=== PATIENT | male | born 1975 | race Caucasian/White ===

== ENCOUNTER 2020-02-07 09:04 | Emergency (ER) | payer MEDICAID, SELFPAY ==
[2020-02-07 09:16] VITALS: BP 112/63; BP 147/90; PULSE 103; PULSE 99; RESP 22; TEMP 36.6; O2SAT 95; BMI 33.4
--- NOTE | 2020-02-07 09:28 | ED.OVERDOSE ---
HPI - Overdose General Chief Complaint: Overdose Stated Complaint: HEROIN USE,NARCAN GIVEN BY BYSTANDER Time Seen by Provider: 02/07/20 09:25 Source: patient and EMS Mode of arrival: EMS Limitations: no limitations History of Present Illness HPI Narrative: 44 y/o male with history of substance abuse presenting via EMS after he was found in his car unresponsive at a traffic light after using 1 bag of intranasal heroin. He was reportedly found by bystanders and given 4 doses of IN Narcan per [place] [employer]. He admits to drinking and driving last night. He says he has been stressed and not sleeping. He admits to cocaine use at times and regular ETOH use. He denies using heroin and says this was his 1st time. MD complaint: accidental overdose Onset (ago): hour(s) (2) Intent: wanted to go to sleep Context: Accidental Overdose: wanted to get high Treatments Prior to Arrival: narcan Related Data Allergies Allergy/AdvReac Type Severity Reaction Status Date / Time Penicillins [PENICILLINS] Allergy Unknown HIVES/UPSET Verified 02/07/20 09:16 STOMACHE Review of Systems Review of Systems: Constitutional: No Fever, No Chills Cardiovascular: No Chest Pain, No SOB Respiratory: No Cough, No Sputum Gastrointestinal: No Nausea, No Vomiting, No Diarrhea, No abdominal Pain Musculoskeletal: No joint pain, No Myalgias Skin: No Skin Lesions, No rash Neuro: No Weakness, No Numbness, No Dizziness, + Headache Psych: + Anxiety/Panic, + Depression PMFSH Past Medical History Attestation statement: The following information was validated with the patient. Social History Social History Alcohol intake: current Alcohol intake frequency: a few times a week Smoking Status: Current every day smoker Smoked in Last 30 Days: Yes Use of substances other than those prescribed or required for medical reasons: Yes Substance Use Type: Crack/Cocaine and Heroin Substance Use Frequency: Occasionally Last Used Substance: Just Prior to Admission Advance Directives: No Advance Directives Information Provided: Yes Physical Exam Vital Signs: Vital Signs: Last Vital Signs Temp 97.8 F 02/07/20 11:44 Pulse 103 H 02/07/20 11:44 Resp 18 02/07/20 11:44 BP 134/84 02/07/20 11:44 Pulse Ox 97 02/07/20 11:44 Body Mass Index 33.4 Appearance: Alert. Oriented X3. No acute distress. Eyes: Pupils equal, round and reactive to light. ENT: Pharynx normal. Neck: Normal inspection. Neck supple. CVS: Normal heart rate and rhythm. Pulses normal. Respiratory: No respiratory distress. Breath sounds normal. Abdomen: Soft and nontender. +BS x4 Skin: Skin warm and dry. Normal skin color. Normal skin turgor. No rashes. Extremities: No lower extremity edema. Neuro: Oriented X 3. Grosslt normal, speech slightly slurred but conversant. Course Course Course Narrative: 44 y/o male presenting s/p unintentional heroin OD s/p Narcan x4 in the field by bystanders. AAO x3 no respiratory depression on arrival. Denies SI or intent. Will monitor closely in the ER for 2-3 hours to make sure he does not require additional Narcan. Reevaluation(s) Reevaluation #1: Respiratory status and mental status remains AAO x3. Ambulating to the bathroom with steady gait. He been observed in the ER for over 3 hours and remains AAO, conversant. Declining detox or conversation with substance abuse counselor. He is stable for discharge. Discharge Plan Discharge Clinical Impression: Drug overdose Qualifiers: Encounter type: initial encounter Injury intent: accidental or unintentional Qualified Code(s): T50.901A - Poisoning by unspecified drugs, medicaments and biological substances, accidental (unintentional), initial encounter Patient Disposition: Home, Self-Care Instructions: Adult Overdose (ED) Additional Instructions: DO NOT USE HEROIN - IT MARVEL KILL YOU! Do not drink alcohol and operate machinery, including a motor vehicle. Follow up with your doctor this week.
--- NOTE | 2020-02-07 10:05 | PC.NURSE ---
Pt taken to bathroom to change with security.Belongings taken to decon. Pt resting in bed comfortably . He remains awake and alert but drowsy at this time.
--- NOTE | 2020-02-07 11:40 | PC.NURSE ---
Pt remains easily arrousable and cooperative at this time.
[2020-02-07 11:44] VITALS: BP 134/84; PULSE 103; RESP 18; TEMP 36.6; O2SAT 97
== END 2020-02-07 12:24 | disposition home or self-care (01) ==
PROVIDERS: Emergency Provider Emergency Medicine
DX: T40.1X1A Poisoning by heroin, accidental (unintentional), initial encounter (principal); R40.4 Transient alteration of awareness; Y92.810 Car as the place of occurrence of the external cause
CPT/HCPCS: 99284; 99285

== ENCOUNTER 2020-09-26 10:24 | Emergency (ER) | payer MEDICAID, SELFPAY ==
--- NOTE | ~2020-09-26 | US_ITS ---
EXAMINATION: US VENOUS ULTRASOUND WITH DOPPLER LOWER EXTREMITY, LEFT CLINICAL INFORMATION: Pain and swelling COMPARISON: None TECHNIQUE: Ultrasound of the deep veins is performed from the hip to the calf with compression sonography and color and pulse Doppler assessment. Spectral analysis with color-flow imaging is performed. FINDINGS: There is normal venous compression and respiratory variation and augmented flow. The visualized common femoral vein, superficial femoral vein, profunda femoral vein, popliteal vein, and the trifurcation region shows no evidence of deep venous thrombosis. There is no significant popliteal fossa cyst. There is a shotty lymph node in the groin. If the patient's symptoms persist, followup ultrasound in 5 days 7 days might be of value to exclude proximal propagation from a non-visualized calf vein. US/US venous duplex LE IMPRESSION: No DVT demonstrated in the left lower extremity.
--- NOTE | ~2020-09-26 | XR_ITS ---
EXAMINATION: XR ANKLE, LEFT CLINICAL INFORMATION: Left ankle pain COMPARISON: None TECHNIQUE: AP, lateral, and mortise views of the left ankle. FINDINGS: There is moderate lateral malleolar soft tissue swelling. The ankle mortise and subtalar joints are normal. No visible acute fracture, dislocation or subluxation seen. There is a small calcaneal heel and retrocalcaneal enthesophyte. XR/XR ankle LT 2V IMPRESSION: No acute fracture or dislocation. Small retrocalcaneal and calcaneal heel enthesophytes.
[2020-09-26 10:37] VITALS: BP 140/82; PULSE 80; RESP 18; TEMP 36.5; O2SAT 97; BMI 31.9
--- NOTE | 2020-09-26 10:45 | ED_ITS ---
HPI - General Adult General Chief complaint: Extremity Injury, Lower Stated complaint: lt ankle pain Time Seen by Provider: 09/26/20 10:44 Source: patient Mode of arrival: wheelchair History of Present Illness HPI narrative: 45 y.o. M presenting to the ED with LLE pain and swelling. Pt. states he woke up with his left ankle being swollen. He denies injury or fall. He states he previously injured his ankle many years ago and took off his cast and does not think he let it heal correctly. He denies injury. He is unsure if he injured it while sleeping. He endorses pain behind his left leg as well. No hx of DVT. NO hx of gout. He otherwise denies loss of sensation, fevers, CP, SOB, abd pain, vomiting. Related Data Allergies Allergy/AdvReac Type Severity Reaction Status Date / Time Penicillins [PENICILLINS] Allergy Unknown HIVES/UPSET Verified 02/07/20 09:16 STOMACHE Review of Systems Constitutional: Constitutional: Denies fever(s) and Denies frequent falls Eyes: Eyes: Reports no additional eye complaints ENT: Reports system reviewed and no additional complaints, except as documented Cardiovascular: Cardiovascular: Denies chest pain and Denies dyspnea Respiratory: Respiratory: Denies dyspnea Gastrointestinal: Gastrointestinal: Denies abdominal pain, Denies diarrhea and Denies vomiting Musculoskeletal: Comments: left ankle swelling Neurologic: Denies frequent falls Psychiatric: Psychiatric: Reports no additional psychiatric complaints Hematologic/Lymphatic: Hematologic/Lymphatic: Denies easy bleeding PMFSH Past Medical History Medical History (Updated 09/26/20 @ 12:28 by SOCO Tijerina) High blood pressure Social History Social History (Updated 09/26/20 @ 12:44 by SOCO Tijerina) Alcohol intake: current Alcohol intake frequency: a few times a week Substance Use Type: Crack/Cocaine and Heroin Substance Use Type Other:: pt. has a hx of heroin and crack/coccaine which he denies use Advance Directives: No Advance Directives Information Provided: No Physical Exam Vital Signs: Vital Signs: Last Vital Signs Temp 97.7 F 09/26/20 10:37 Pulse 80 09/26/20 10:37 Resp 18 09/26/20 12:27 BP 140/82 H 09/26/20 10:37 Pulse Ox 97 09/26/20 10:37 Body Mass Index 31.9 Const: Other: sitting upright in wheelchair talking on phone General: cooperative Orientation/consciousness: patient oriented x3 HENMT: Head: Yes atraumatic Eyes: Pupils: Equal, round and reactive pupils present Neck: Neck: Yes supple Resp: Effort & Inspection: normal respiratory effort and able to speak in complete sentences Cardio: Rate: regular rate GI: Inspection: No distended Back/Spine/Pelvis: Other: normal ROM Skin: Rashes: no rashes Neuro: General: patient oriented x3 Cranial nerves: Yes Equal, round and reactive pupils present Extrem: Other: LLE- + pedal pulse, full ROM of digits, I am able to passively dorsiflex/plantarflex, swelling noted to lateral malleolus, no erythema or warmth, no open sores or lesions, achilles intact, mild tenderness to posterior lower extremity, no achilles laxity, compartments soft, limbs symmetrical in size with the exception of swelling around the malleolus, neurovascularly intact Psych: Attitude: cooperative Course Reevaluation(s) Reevaluation #1: Pt. remains comfortable sitting in the wheelchair. US is negative for DVT. Xray negative for fx. Will give ortho follow up should his sym ptoms continue. Return precautions given, weight bearing as tolerated. ALONDRA. Medical Decision Making MDM Narrative Medical decision making narrative: 45 y.o. M presenting to the ED with ankle pain and swelling since last night VS stable, not toxic appearing, hemodynamically stable WIll plan for plain film to r/o underlying fx. No evidence of achilles rupture. No evidence of gout or septic joint- no erythema or warmth, I am able to passively range the joint. No open wounds. Given posterior lower calf tenderness will send for US to r/o DVT. No infectious symptoms. No evidence of tendon rupture. Will plan for crutches and air splint for weight bearing as tolerated. NSAIDs for pain. Discharge Plan Discharge Clinical Impression: Ankle pain Patient Disposition: Home, Self-Care Instructions: R.I.C.E. Treatment (ED) Additional Instructions: Please use the crutches for weight bearing as tolerated, wear air splint for comfort. If your symptoms do not improve we recommend you call the orthopedic office. Please return if your symptoms worsen, increased pain, swelling, difficulty walking, weakness, numbness, tingling, loss of balance, falling, redness, warmth or rashes, or any other concerning symptoms. You may take tylenol or ibuprofen for pain if needed. Referrals: Jarod Coello MD [Physician] - 1 week Interventions: ED Discharge Assessment Last Done: 09/26/20 12:33 Discharge Date/Time: 09/26/20 12:33
[2020-09-26] MEDS: Ibuprofen 600 MG TABLET PO (11:15)
[2020-09-26] MEDS: Acetaminophen 325 MG TABLET 650 MG PO (11:16)
[2020-09-26 12:26] VITALS: RESP 18
[2020-09-26 12:27] VITALS: RESP 18
== END 2020-09-26 12:33 | disposition home or self-care (01) ==
PROVIDERS: Emergency Provider Emergency Medicine
DX: M25.572 Pain in left ankle and joints of left foot (principal); R60.0 Localized edema; F11.90 Opioid use, unspecified, uncomplicated; F14.90 Cocaine use, unspecified, uncomplicated
CPT/HCPCS: 73600; 93971; 99284

== ENCOUNTER 2023-02-19 16:08 | Emergency (ER) | payer MEDICAID, SELFPAY ==
--- NOTE | ~2023-02-19 | XR_ITS ---
EXAMINATION: XR ANKLE, LEFT CLINICAL INFORMATION: Status post fall. Swelling. COMPARISON: None available. TECHNIQUE: AP, lateral, and mortise views of the left ankle. FINDINGS: There is bimalleolar soft tissue swelling. No acute fracture or dislocation seen. There is small bone fragments along the tip of medial and lateral malleoli likely old fracture fragments. Ankle mortise and subtalar joints are normal. Small calcaneal enthesophyte is seen. The soft tissues are normal. XR/XR ankle LT min 3V IMPRESSION: 1. Bimalleolar soft tissue swelling. No visible acute fracture or dislocation seen. 2. Small calcaneal heel enthesophyte
[2023-02-19 16:55] VITALS: BP 132/57; PULSE 75; RESP 18; TEMP 36.4; O2SAT 97; BMI 31.9
--- NOTE | 2023-02-19 18:16 | ED.GENADULT ---
HPI - General Adult General Chief complaint: Extremity Injury, Lower Stated complaint: fell left ankle inj Time Seen by Provider: 02/19/23 18:16 Source: patient and communications marketing intern Mode of arrival: wheelchair Limitations: language barrier History of Present Illness HPI narrative: Patient is a 47 year old assigned male at with no reported medical history presenting to the emergency department today with left ankle pain. Patient states that he was in the [facility] parking lot when he tripped over a metal addy and now having left ankle pain. Patient denies any head strike, loss of consciousness, dizziness, lightheadedness, abdominal pain, nausea, vomiting, fever, chills, blurry vision, double vision, loss of vision, chest pain, difficulty breathing, shortness of breath, back pain, night sweats, pain with urination, increased urinary frequency, increased urinary urgency, blood in his urine or stool, syncope or a near syncopal episode, bowel incontinence, bladder incontinence, bowel retention, bladder retention, or any other complaints at this time. Onset (ago): minute(s) Location: left and lower extremity Radiation: non-radiation Severity: mild Severity scale (1-10): 3 Quality: aching and dull Pain Consistency: constant Relieving factors: none Exacerbating factors: none Associated symptoms: denies other symptoms Treatments prior to arrival: none Related Data Allergies Allergy/AdvReac Type Severity Reaction Status Date / Time Penicillins [PENICILLINS] Allergy Unknown HIVES/UPSET Verified 02/07/20 09:16 STOMACHE Review of Systems Constitutional: Constitutional: Reports no additional constitutional complaints, Denies chills, Denies fever(s) and Denies night sweats Eyes: Eyes: Reports no additional eye complaints, Denies blurry vision, Denies change in vision, Denies diplopia, Denies eye discharge, Denies loss of vision and Denies eye pain ENT: Denies dizziness Cardiovascular: Cardiovascular: Reports no additional cardiovascular complaints, Denies chest pain, Denies lightheadedness, Denies Loss of Consciousness and Denies dyspnea Respiratory: Respiratory: Reports no additional respiratory complaints and Denies dyspnea Gastrointestinal: Gastrointestinal: Reports no additional gastrointestinal complaints, Denies abdominal pain, Denies melena, Denies hematochezia, Denies change in bowel habits and Denies change in stool character Genitourinary: Genitourinary: Reports no additional male genitourinary complaints, Denies hematuria, Denies oliguria, Denies difficulty urinating, Denies dysuria, Denies urinary frequency, Denies urinary hesitancy, Denies urinary incontinence and Denies urinary urgency Musculoskeletal: Musculoskeletal: Reports no additional musculoskeletal complaints, Denies numbness and Denies tingling Comments: left ankle pain Neurologic: Denies dizziness, Denies loss of vision, Denies numbness and Denies tingling Psychiatric: Psychiatric: Reports no additional psychiatric complaints Endocrine: Endocrine: Reports no additional endocrine complaints Hematologic/Lymphatic: Hematologic/Lymphatic: Reports no additional hematologic/lymphatic complaints Allergic/Immunologic: Allergic/Immunologic: Reports no additional allergic/immunologic complaints [facility] Past Medical History Attestation statement: The following information was validated with the patient. Source: old records reviewed and nursing notes reviewed Onset Date is defined in the Problem List Problems that require an onset date and time if occurred within 24 hrs of arrival to the ED Aortic Dissection and Rupture; Neurologic impairment; Cardiopulmonary Arrest; Endotracheal Intubation; Insertion or Replacement of Mechanical Circulatory Assist Device Medical History High blood pressure Social History Social History Alcohol intake: current Alcohol intake frequency: a few times a week Substance Use Type: Crack/Cocaine and Heroin Advance Directives: No Advance Directives Information Provided: No Physical Exam ED Vital Signs: Vital Signs - 24 hr 02/19/23 16:55 Temperature 97.6 F Pulse Rate 75 Respiratory Rate 18 Blood Pressure 132/57 L Pulse Oximetry 97 Oxygen Delivery Method Room Air BMI result Body Mass Index 31.9 Const General: cooperative, no acute distress, alert and awake Nutritional Appearance: well nourished Orientation/consciousness: patient oriented x3 Limitations: no limitations HENMT Head: Yes normal to inspection and Yes atraumatic Ears: hearing grossly normal bilaterally and external ears normal General nose exam: Normal external nose present, no nasal discharge noted and no epistaxis Face and sinus: Yes normal facial exam, No abrasion and No laceration Mouth: Normal oral and palatal mucosa present, no drooling and no muffled voice Eyes General: appearance normal, both eyes and all related structures Periorbital: periorbital findings normal Eyelids: Yes eyelids normal Conjunctivae: conjunctivae normal Pupils: Equal, round and reactive pupils present EOM: EOMs intact bilaterally Neck Neck: Yes normal visual inspection, Yes full ROM and Yes no lymphadenopathy Chest Chest palpation & inspection: normal inspection of the chest Resp Effort & Inspection: normal respiratory effort and able to speak in complete sentences GI Inspection: Yes normal to inspection Neuro General: patient oriented x3 and moves all extremities Cranial nerves: Yes Equal, round and reactive pupils present Cognition (Neuro): normal cognition Motor exam (neuro): 5/5 motor strength present throughout Sensory Exam: Normal double simultaneous stimulation for sensation Coordination: [id number] test normal Extrem General: Yes normal to inspection, Yes full ROM and Yes capillary refill normal Psych Appearance: grossly normal Mental Status: mental status grossly normal Affect: normal affect Attitude: cooperative Thought process: Normal thought process present Thought content: Normal thought content present Insight: Good insight present (Psych) Procedures Orthopedic Splinting/Casting Injury #1: Side: left Upper Extremity Immobilizer: Hernán wrap Lower Extremity Injury Location: ankle Medical Decision Making Medical Decision Making MDM Narrative: Patient is a 47 year old assigned male at with no reported medical history presenting to the emergency department today with left ankle pain. Patient's physical exam was unremarkable. Patient's left ankle x-ray showed no acute process. I explained my physical exam findings as well as all test results to the patient. I answered all questions asked by the patient. HERNÁN Wrap applied to the left ankle without incident. Patient's PMS was intact prior to and after HERNÁN placement. I stressed the importance of the patient taking his medication as prescribed. I stressed the importance of the patient following up with his primary care provider. I stressed the importance of the patient returning to the emergency department immediately if his symptoms were to worsen or if he were to develop any dizziness, shortness of breath, difficulty breathing, chest pain, blurry vision, loss of vision, nausea, vomiting, abdominal pain, fever, chills, back pain, or any other complaints. Patient verbalized agreement and understanding with this treatment plan and discharge. Differential Diagnosis Differential Diagnoses: The differential diagnosis associated with the presentation includes Ankle sprain Ankle strain Ankle fracture Admission/Observation Consideration of admission/observation: Escalation of care including admission/observation considered Patient would have been admitted to the hospital had his work up had any findings where hospital admission was appropriate and his clinical presentation warranted hospital admission. Independent Interpretation I performed an independent interpretation of an: Plain X-Ray Interpretation: My interpretation is in agreement with the radiologist's impression of this imaging study. EXAMINATION: XR ANKLE, LEFT CLINICAL INFORMATION: Status post fall. Swelling. COMPARISON: None available. TECHNIQUE: AP, lateral, and mortise views of the left ankle. FINDINGS: There is bimalleolar soft tissue swelling. No acute fracture or dislocation seen. There is small bone fragments along the tip of medial and lateral malleoli likely old fracture fragments. Ankle mortise and subtalar joints are normal. Small calcaneal enthesophyte is seen. The soft tissues are normal. XR/XR ankle LT min 3V IMPRESSION: 1. Bimalleolar soft tissue swelling. No visible acute fracture or dislocation seen. 2. Small calcaneal heel enthesophyte Dictated By: Curtis Ames MD Signed By: Electronically signed by Curtis Ames MD 02/19/23 3943 Radiology Impression Discussion of test interpretation with radiology: I have reviewed the radiologist's reading. Discharge Plan Discharge Clinical Impression: Ankle sprain and strain Patient Disposition: Home, Self-Care Instructions: Ankle Sprain (DC) Additional Instructions: Follow up with your primary care provider. Return to the emergency department immediately if your symptoms worsen or if you develop any dizziness, shortness of breath, difficulty breathing, chest pain, blurry vision, loss of vision, nausea, vomiting, abdominal pain, fever, chills, back pain, or any other complaints. Alma un seguimiento con hill proveedor de atenci?n primaria. Regrese al departamento de emergencias inmediatamente si catracho s?ntomas empeoran o si presenta mareos, dificultad para respirar, dificultad para respirar, dolor en el pecho, visi?n borrosa, p?rdida de la visi?n, n?useas, v?mitos, dolor abdominal, fiebre, escalofr?os, dolor de espalda o cualquier otras quejas. Referrals: [facility] [place] Family Medicine [Provider Group] (Call to establish and follow up with a primary care provider. If you already have a primary care provider, please follow up with them. Llame para establecer y realizar un seguimiento con un proveedor de atenci?n primaria. Si ya tiene un proveedor de atenci?n primaria, alma un seguimiento con ?l.) [facility] [place] Primary Care, [facility] [Provider Group] (Call to establish and follow up with a primary care provider. If you already have a primary care provider, please follow up with them. Llame para establecer y realizar un seguimiento con un proveedor de atenci?n primaria. Si ya tiene un proveedor de atenci?n primaria, alma un seguimiento con ?l.) [facility] [place] Primary Care,Cheryl [Provider Group] (Call to establish and follow up with a primary care provider. If you already have a primary care provider, please follow up with them. Llame para establecer y realizar un seguimiento con un proveedor de atenci?n primaria. Si ya tiene un proveedor de atenci?n primaria, alma un seguimiento con ?l.) Interventions: ED Discharge Assessment Last Done: 02/19/23 18:34 Discharge Date/Time: 02/19/23 18:35 Print Language: Setswana
== END 2023-02-19 18:35 | disposition home or self-care (01) ==
LOC: HO.ED 18:30
PROVIDERS: Emergency Provider Emergency Medicine
DX: S93.402A Sprain of unspecified ligament of left ankle, initial encounter (principal); W01.0XXA Fall on same level from slipping, tripping and stumbling without subsequent striking against object, initial encounter; Y93.9 Activity, unspecified; Y92.9 Unspecified place or not applicable; Y99.9 Unspecified external cause status
CPT/HCPCS: 29515; 73610; 99282; 99283

== ENCOUNTER 2023-03-23 11:23 | Emergency (ER) | payer OTHER, SELFPAY ==
--- NOTE | ~2023-03-23 | XR_ITS ---
EXAMINATION: XR KNEE, LEFT CLINICAL INFORMATION: Fall COMPARISON: None available. TECHNIQUE: Four views of the left knee. FINDINGS: No fracture or joint effusion. Alignment is anatomic. Joint spaces are maintained. Small osteophytes at the patellofemoral joint. No abnormal soft tissue calcification. XR/XR knee LT 3V IMPRESSION: No fracture or dislocation.
--- NOTE | ~2023-03-23 | XR_ITS ---
EXAMINATION: XR LUMBOSACRAL SPINE CLINICAL INFORMATION: Left lower back pain COMPARISON: None available. TECHNIQUE: Three views of the lumbosacral spine. FINDINGS: The visualized lumbar vertebrae are intact with normal alignment. There is sacralization of L5. Intervertebral disc spaces are normal. Sacrum and coccyx are intact with normal alignment. XR/XR lumbar spine 2-3V IMPRESSION: 1. L5 sacralization. 2. No fracture or dislocation of lumbar spine is seen.
[2023-03-23 11:37] VITALS: BP 152/86; PULSE 85; RESP 18; TEMP 36.4; O2SAT 95; BMI 34.2
--- NOTE | 2023-03-23 11:37 | ED_ITS ---
HPI - General Adult General Chief complaint: Back Pain/Injury Stated complaint: lower back and ankle pain Time Seen by Provider: 03/23/23 12:07 Source: patient and robotic welding operator Mode of arrival: ambulatory Limitations: language barrier History of Present Illness HPI narrative: Patient is a 47-year-old Chilean-speaking male presenting to the emergency department with complaint of left knee pain and left lower back pain for the past week. He reports that he had a fall a month ago, was evaluated here for ankle pain and has been using a splint but recently developed the knee and back pain. States that at the time of the fall, he fell onto his left side. Has been taking Tylenol and ibuprofen with little relief. Denies any saddle anesthesia or bowel or bladder incontinence, denies IV drug use, denies fevers. Denies any weakness, numbness, tingling to left lower extremity. Reports the pain to his left knee is on the lateral aspect. MD complaint: Left knee and lower back pain Onset (ago): week(s) Location: left and lower extremity Severity: severe Quality: aching Pain Consistency: constant Relieving factors: rest Exacerbating factors: movement Associated symptoms: denies other symptoms Treatments prior to arrival: NSAID and other Related Data Previous Rx's Medication Instructions Recorded diclofenac sodium 1 % topical gel 2 g topical QID #100 grams 03/23/23 prednisone 20 mg tablet 40 mg (2 x 20 mg) PO DAILY #10 tabs 03/23/23 Allergies Allergy/AdvReac Type Severity Reaction Status Date / Time Penicillins [PENICILLINS] Allergy Unknown HIVES/UPSET Verified 03/23/23 11:40 STOMACHE Review of Systems Review of Systems: As per HPI. Yes all other systems are reviewed and are negative Constitutional: Constitutional: Reports as per HPI [facility] Past Medical History Medical History High blood pressure Social History Social History Alcohol intake: current Alcohol intake frequency: a few times a week Substance Use Type: Crack/Cocaine and Heroin Advance Directives: No Physical Exam ED Vital Signs: Vital Signs - 24 hr 03/23/23 11:37 Temperature 97.6 F Pulse Rate 85 Respiratory Rate 18 Blood Pressure 152/86 H Pulse Oximetry 95 Oxygen Delivery Method Room Air BMI result Body Mass Index 34.2 Vital signs have been reviewed and appear to be correct. Blood pressure elevated. Heart rate normal. Respiratory rate normal. Temperature normal. Oxygen saturation normal. Const General: cooperative, healthy appearing and no acute distress Orientation/consciousness: oriented to person, oriented to place, oriented to time and patient oriented x3 Limitations: no limitations [facility] Head: Yes normocephalic and Yes atraumatic Ears: external ears normal General nose exam: Normal external nose present Face and sinus: Yes face symmetric Mouth: oropharynx normal and moist mucous membranes Throat: Yes uvula midline Eyes Pupils: Equal, round and reactive pupils present Neck Neck: Yes normal visual inspection and Yes supple Resp Effort & Inspection: normal respiratory effort and able to speak in complete sentences Auscultation: clear to auscultation bilaterally Cardio Rate: regular rate Rhythm: regular rhythm Heart sounds: S1 normal heart sound present and S2 normal heart sound present GI Palpation (GI): Soft to palpation and nontender Auscultation: normoactive bowel sounds General: Yes no CVA tenderness Back/Spine/Pelvis Back: no CVA tenderness Thoracic/Lumbar Spine: thoracic and lumbar spine normal to inspection, thoraco- lumbar ROM normal, paraspinal muscle tenderness on the left in the mid lumbar and in the lower lumbar, No thoracic spinal tenderness, No lumbar spinal tenderness and straight leg raise positive left Pelvis: no pain with anterior-posterior compression and no pain with lateral compression Skin General skin exam: elasticity normal and turgor normal Neuro General: oriented to person, oriented to place, oriented to time, patient oriented x3, gait normal, tone normal, moves all extremities, Normal light touch and pain sensation, no focal motor deficits, CN's II-XI intact bilaterally and deep tendon reflexes 2+ bilaterally Cranial nerves: Yes Equal, round and reactive pupils present Cognition (Neuro): normal cognition Motor exam (neuro): 5/5 motor strength present throughout, Normal motor muscle tone present throughout and Motor abnormalities not present Extrem General: Yes full ROM, Yes normal exam except as noted, Yes no pedal edema and Yes no calf tenderness Left lower extremity: knee Details: tenderness Location: of the lateral joint line, abnormal ROM Details: pain with active ROM Details: with flexion and knee ligament exam normal; no swelling, no ecchymosis, no crepitus, no deformity and no unusual warmth and foot Details: normal capillary refill and vascular exam Details: dorsalis pedis pulse present and posterior tibial pulse present Psych Mental Status: mental status grossly normal Affect: normal affect Thought process: Normal thought process present Course Course Course Narrative: RME:?47 yo male here for eval of low back pain. Was seen here 1 mo ago for left ankle sprain after tripping in [employer] parking lot. Pain is now radiating up left leg and into left lower back for the past week. Taking tylenol at home without relief, last dose yesterday. able to ambulate w/ discomfort to left ankle. Denie s new injury/ fall. denies numbness/weakness/tingling, dysuria, hematuria. No saddle anesthesia. No history of IVDU. xrs ordered Full HPI, ROS and PE to be performed by the primary ED provider. Medical Decision Making Medical Decision Making [facility] Narrative: Patient is a 47-year-old Chilean-speaking male presenting to the emergency department with complaint of left knee pain and left lower back pain for the past week. On exam patient is awake, A+Ox3, BP elevated, VS otherwise WNL, afebrile, normal neurological exam without focal deficits, physical exam findings as above. Given reported symptoms and physical exam findings, initial differential includes lumbar strain, lumbar radiculopathy, degenerative disc disease, disc herniation, spinal stenosis, spondylosis, vertebral fracture, left knee strain vs contusion vs fracture. Do not suspect ligamentous injury. Do not suspect malignancy/mass, SEA, cauda equina/cord compression. X-ray lumbar spine and left knee notable for no acute fractures, L5 sacralization. My interpretation is in agreement with the radiologist's interpretation. Results discussed with patient and all questions answered. Advised patient to continue alternating Tylenol ibuprofen, will prescribe short course of prednisone for lumbar radiculopathy. Will also prescribe diclofenac gel for knee and ankle pain. Patient provided with new Hernán wrap in the emergency department today. Return precautions discussed. Instructed patient to follow-up with primary care provider. Patient verbalized understanding of and agreement with plan. Discharge Plan Discharge Clinical Impression: Lumbar radiculopathy, Knee pain, left Patient Disposition: Home, Self-Care Instructions: Lumbar Radiculopathy (ED), Knee Pain (ED), R.I.C.E. Treatment (ED) Additional Instructions: You were evaluated in the emergency department today for back pain. Your evaluation did not show signs of medical conditions requiring emergent intervention at this time. We recommended that you use ibuprofen or Tylenol per package directions every 6 hours as needed for pain. If necessary, you can alternate these medications so that you take one medication every 3 hours. For instance, at noon take ibuprofen, then at 3:00 p.m. take Tylenol, then at 6:00 p.m. take ibuprofen. You have been prescribed a short course of steroids to decrease inflammation. You have also been prescribed diclofenac gel which you can apply topically to your knee and ankle for pain. Please schedule an appointment for follow-up with your primary care physician this week for further evaluation of your symptoms. Return to the emergency department if you experience worsening back pain, difficulty walking, fevers, numbness, tingling, incontinence, groin numbness or tingling, or any other concerning symptoms. Prescriptions: New prednisone 20 mg tablet 40 mg PO DAILY Qty: 10 0RF diclofenac sodium 1 % gel 2 g topical QID Qty: 100 0RF Rx Instructions: apply to left knee and ankle Referrals: [facility] [Provider Group]
[2023-03-23 15:50] VITALS: BP 156/97; PULSE 79; RESP 16; TEMP 36.8; O2SAT 98
== END 2023-03-23 15:50 | disposition home or self-care (01) ==
PROVIDERS: Emergency Provider Student in an Organized Health Care Education/Training Program
DX: M54.16 Radiculopathy, lumbar region (principal); M54.50 Low back pain, unspecified; M25.562 Pain in left knee
CPT/HCPCS: 72100; 73562; 99283

== ENCOUNTER 2023-04-20 12:12 | Outpatient (REF) | payer OTHER, SELFPAY ==
--- NOTE | ~2023-04-20 | XR_ITS ---
EXAMINATION: XR KNEE AP STANDING CLINICAL INFORMATION: Pain in left knee. COMPARISON: 03/23/2023 radiographs. TECHNIQUE: AP bilateral standing view of the knees was obtained. [place] view of the left knee. FINDINGS: Small posterior patellar osteophytes. Mild narrowing of the lateral compartments of the bilateral knees with small marginal osteophytes. XR/XR knee standing BI IMPRESSION: Mild degenerative changes in the bilateral knees.
--- NOTE | ~2023-04-20 | XR_ITS ---
EXAMINATION: XR KNEE AP STANDING CLINICAL INFORMATION: Pain in left knee. COMPARISON: 03/23/2023 radiographs. TECHNIQUE: AP bilateral standing view of the knees was obtained. [place] view of the left knee. FINDINGS: Small posterior patellar osteophytes. Mild narrowing of the lateral compartments of the bilateral knees with small marginal osteophytes. XR/XR knee LT 1V IMPRESSION: Mild degenerative changes in the bilateral knees.
== END 2023-04-20 12:13 | disposition home or self-care (01) ==
LOC: HO.HOSX 12:12
PROVIDERS: Visit Provider Physician Assistant
DX: M17.12 Unilateral primary osteoarthritis, left knee (principal); M25.561 Pain in right knee; Z91.81 History of falling
CPT/HCPCS: 20610; 73560; 73565; 99202; J1040

== ENCOUNTER 2023-04-20 13:42 | Outpatient (AMB) | payer OTHER, SELFPAY ==
[2023-04-20 13:49] VITALS: BMI 34.2
--- NOTE | 2023-04-20 13:49 | A.OFFVIS_ITS ---
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 Patient reports he had a fall approx begining of February in the parking lot of [employer], landing on his left side. Seen in ED on 03/23/23 where xrays were done and referred to orthopedics. Currently states he is limited ROM, swelling and pain. Allergies Penicillins [PENICILLINS] Allergy (Unknown, Verified 04/20/23 13:57) HIVES/UPSET STOMACHE Medication List - Last Reconciled 04/20/23 by SOCO Estrella-Micki diclofenac sodium 1% 2 grams topical QID HPI video software engineer-left knee pain HPI Details 47-year-old male who presents to the off ice today for evaluation of left knee pain s/p fall on his left side in the parking lot of [employer], around the beginning of February. He was seen at ED on 03/23/23 where x-rays were performed and he was referred to our office. He currently states he has limited ROM, swelling, and pain in his knee. He also c/o his knee giving out with ambulation and he cannot bend his knee. He has a history of prediabetes. [facility] Medical History High blood pressure Social History (Updated 04/20/23 @ 13:58 by Shagufta Matthews [facility]) Alcohol intake: current Alcohol intake frequency: a few times a week Substance Use Type: Crack/Cocaine and Heroin Current occupational status: disabled Current occupation: rt hand Review of Systems Const All systems reviewed & are unremarkable except as noted in HPI and below Physical Exam Vital Signs: BMI result Body Mass Index 34.2 Const General: cooperative, healthy appearing, comfortable, no acute distress, well developed and alert Orientation/consciousness: patient oriented x3 HEENT Head: Yes normal to inspection, Yes normocephalic and Yes atraumatic Eyes General: appearance normal, both eyes and all related structures Resp Effort & Inspection: normal respiratory effort and able to speak in complete sentences Cardio Rate: regular rate Peripheral pulses: Peripheral pulses 2+ throughout GI Palpation (GI): Soft to palpation Skin Lesions: no lesions Rashes: no rashes Neuro General: patient oriented x3 Extrem Other: Left knee: Skin intact, no erythema. Moderate sized joint effusion present. Tenderness along the medial and lateral joint line. Full ROM with crepitus. Negative Romi?s. No ligamentous laxity. NVI. Office Procedures Joint Injection/Drain Joint Injection/Drain Details: 45 cc joint fluid Primary Site: right knee Prep: site was prepped using aseptic technique, ethochloride spray was applied and injection warnings given Injected: 80 mg of, DepoMedrol, with 8 mL of, 1% plain lidocaine and in the joint Approach Used: anterolateral Procedure: The patient tolerated the procedure well and there was some relief with the local anesthesia Coding 24290 - Glenohumeral/Tronchanteric Bursa/Intraarticular Procedure code (CPT) selection complete Results Reviewed Results Reviewed: Xrays were obtained in the office today and personally reviewed by me of the left knee show well preserved joint space Assessment & Plan Assessment & Plan (1) Osteoarthritis of left knee: Code(s): M17.12 - Unilateral primary osteoarthritis, left knee Qualifiers: Osteoarthritis type: primary Qualified Code(s): M17.12 - Unilateral primary osteoarthritis, left knee Plan Left knee was aspirated in the office today 45cc joint fluid . We discussed options today which include steroid injection. They did consent to move forward with the left knee asp and injection, which was tolerated well. I recommended rest, ice and elevation and OTC anti-inflammatories PRN for discomfort. An MRI of the left knee was also ordered to further evaluate the ligamentous structures. If symptoms persist or worsens over the next 6-8 weeks, patient will contact the office, otherwise follow-up as needed. Orders: Orders XR knee standing BI 04/20/23 M25.561 - Pain in right knee, M25.562 - Pain in left knee XR knee LT 1V 04/20/23 M25.562 - Pain in left knee Patient Instructions: Scribed for Jason Porter PA-C, by Facundo Patton medical aides teacher, on 04/20/2023 at 2:00 PM EST. Jason Baron PA-C, have personally reviewed and agree with the information entered by the scribe. Coding Level of Care Code New Pt Level 3 (96697) Diagnoses Primary osteoarthritis of left knee M17.12 Osteoarthritis type: primary CPT Codes Coding - Joint 7: 20986 - Glenohumeral/Tronchanteric Bursa/Intraarticular ([id number])
== END 2023-04-20 14:55 | disposition home or self-care (01) ==
PROVIDERS: PCP Family Medicine; Visit Provider Physician Assistant
DX: M17.12 Unilateral primary osteoarthritis, left knee (principal); W19.XXXA Unspecified fall, initial encounter
CPT/HCPCS: 20610; 99203